=== PATIENT | female | born 1985 | race Caucasian/White ===

== ENCOUNTER 2016-04-21 23:55 | Emergency (ER) | payer OTHER ==
[2016-04-22] MEDS ORDERED: LACTATED RINGERS 1,000 ML ONE ×2 (01:04→02:04)
[2016-04-22 01:10] LABS: HCG,QUALITATIVE URINE NEGATIVE; URINE BILIRUBIN NEGATIVE (NEGATIVE); URINE BLOOD 2+ (NEGATIVE); URINE GLUCOSE (UA) NEGATIVE (NEGATIVE); URINE LEUKOCYTE ESTERASE NEGATIVE (NEGATIVE); URINE NITRITE NEGATIVE (NEGATIVE); URINE PROTEIN 1+ (NEGATIVE); URINE UROBILINOGEN NORMAL (0-1 mg/dl)
[2016-04-22 01:30] LABS: URINE APPEARANCE SL CLOUDY; URINE COLOR YELLOW
[2016-04-22 01:41] LABS: URINE BACTERIA 4+; URINE MUCUS 2+
[2016-04-22] MEDS ORDERED: PROMETHAZINE HCL 25 MG/ML VIAL ONE (01:53)
[2016-04-22] MEDS ORDERED: HALOPERIDOL LACTATE 5 MG/1 ML AMP ONE (03:40)
[2016-04-22] MEDS ORDERED: ONDANSETRON 4 MG/2ML 2 ML VIAL ONE (04:04)
[2016-04-22] MEDS ORDERED: DEXAMETHASONE SOD PHOS 10 MG/1 ML VIAL ONE (04:32)
== END 2016-04-22 04:52 | disposition home or self-care (01) ==
LOC: ED 23:55
DX: R11.10 Vomiting, unspecified (principal); R19.7 Diarrhea, unspecified; K31.84 Gastroparesis; G43.909 Migraine, unspecified, not intractable, without status migrainosus; R56.9 Unspecified convulsions
CPT/HCPCS: 81025; 81001; 96375; 99283 ×2; 96374; 96361; J1100; J2550; J2405; J7120 ×2